=== PATIENT | female | born 1965 | race Caucasian/White ===

== ENCOUNTER → 2020-02-06 | Outpatient (REF) | payer BC ==
[2020-02-07 16:17] LABS: MALB URINE SIEMENS < 5.0 MG/L; MAU/CREAT RATIO 29.4 MCG/MG (0.0-30.0)
== END ==
LOC: M LAB REF 15:09
PROVIDERS: ATTEND Nurse Practitioner Family
DX: E11.65 Type 2 diabetes mellitus with hyperglycemia (principal)

== ENCOUNTER → 2023-09-22 | Outpatient (REF) | payer BC ==
[2023-09-23 16:21] LABS: CREATININE, URINE 85.3 MG/DL; CREATININE,RANDOM URINE 85.3 MG/DL; MAU/CREAT RATIO 4.6 MCG/MG (0.0-30.0)
== END ==
LOC: M LAB REF 15:17
PROVIDERS: ATTEND Nurse Practitioner Family
DX: E11.65 Type 2 diabetes mellitus with hyperglycemia (principal)